=== PATIENT | female | born 1970 | race Caucasian/White ===

== ENCOUNTER 2018-05-18 11:47 | Inpatient (IN) | payer OTHER ==
[~2018-05-18] VITALS: Ht 167.6 cm; Wt 51.8 kg
[2018-05-18 11:59] VITALS: BP 102/70
[2018-05-18] MEDS ORDERED: PROTONIX 20 MG20 M1 PO (12:07)
[2018-05-18] MEDS ORDERED: NEURONTIN 300300 M1 PO (12:07)
[2018-05-18 12:54] LABS: ABSOLUTE BASOPHILS 0.1 thou/uL (0.0-0.2); ABSOLUTE LYMPHOCYTES 1.5 thou/uL (0.8-5.3); ABSOLUTE MONOCYTES 0.8 thou/uL (0.0-1.2); ABSOLUTE NEUTROPHILS 6.2 thou/uL (1.6-8.1); BASOPHILS 0.6 %; EOSINOPHILS 0.5 %; HEMATOCRIT 40.1 % (37.0-47.0); HEMOGLOBIN 13.6 gm/dL (12.0-15.0); LYMPHOCYTES 17.3 %; MCH 36.9 pg (26.0-34.0); MCV 108.5 fL (80.0-100.0); MONOCYTES 9.5 %; MPV 8.6 fl. (7.2-11.1); NUCLEATED RBCS 0 /100WBC; PLATELET COUNT* 265 thou/uL (150-400); POLYS 72.1 %; RDW-CV 16.5 % (10.5-14.5); WBC 8.6 thou/uL (4.0-11.0)
[2018-05-18 13:03] LABS: PROTIME 10.7 Seconds (9.20-11.50)
[2018-05-18 13:11] LABS: ALBUMIN 2.6 g/dL (3.4-5.0); ALKALINE PHOSPHATASE 124 U/L (46-116); ANION GAP 14 mmol/L (7-16); BUN 3 mg/dL (7-18); CALCIUM 8.8 mg/dL (8.5-10.1); CHLORIDE 98 mmol/L (98-107); CO2 25 mmol/L (21-32); CREATININE 0.6 mg/dL (0.6-1.3); GLUCOSE 68 mg/dL (70-99); LIPASE 75 U/L (73-393); POTASSIUM 3.7 mmol/L (3.5-5.1); SGOT 35 U/L (15-37); SGPT 34 U/L (30-65); SODIUM 137 mmol/L (136-145); TOTAL BILIRUBIN 0.7 mg/dL (<0.1-1.0); TOTAL PROTEIN 6.7 g/dL (6.4-8.2); TROPONIN-I LEVEL <0.06 ng/mL (<0.06)
--- NOTE | 2018-05-18 14:05 | NUR ---
PT TO MRI ON CART WITH ARTIFICIAL FOLIAGE ARRANGER. PT A&OX4 AT TIME OF DEPARTURE
[2018-05-18 14:36] LABS: URINE BILIRUBIN NEGATIVE (Negative); URINE BLOOD NEGATIVE (Negative); URINE CLARITY CLEAR; URINE COLOR YELLOW; URINE GLUCOSE-RANDOM NEGATIVE (Negative); URINE NITRITE-REFLEX NEGATIVE (Negative); URINE PROTEIN NEGATIVE (Negative); URINE UROBILINOGEN 0.2 E.U./dl (0.2-1.0)
[2018-05-18 14:37] LABS: URINE KETONES 3+ (Negative); URINE LEUKOCYTES-REFLEX 2+ (Negative)
[2018-05-18 14:42] LABS: AMP/METHAMP Negative (Negative); BARBITURATES Negative (Negative); BENZODIAZEPINES Negative (Negative); COCAINE Negative (Negative); METHADONE Negative (Negative); OPIATES Negative (Negative); PCP Negative (Negative); THC Negative (Negative)
[2018-05-18 14:43] LABS: BACTERIA-REFLEX 1-9 Few /HPF (None Seen); CASTS None Seen /LPF (None Seen); CRYSTALS None Seen /LPF (None Seen); SQUAMOUS NONE SEEN /LPF (0-3); URINE RBC 0-2 Rare /HPF (0-2); URINE WBC-REFLEX 0-5 Rare /HPF (0-5)
[2018-05-18 18:40] LABS: CSF PROTEIN 44.8 mg/dl (15-45)
[2018-05-18 18:59] LABS: CSF CLARITY CLEAR; CSF COLOR COLORLESS; VOLUME 6 ml
[2018-05-18 19:11] LABS: CSF RBC 2 /mm3; CSF WBC 0 /mm3 (0-10)
[2018-05-18 19:12] LABS: CSF EOSINOPHILS ND %; CSF LYMPHOCYTES ND % (40-80); CSF MONONUCLEARS ND % (15-45); CSF POLYS ND % (0-6)
[2018-05-18 19:15] LABS: CSF CLARITY CLEAR; CSF COLOR COLORLESS; VOLUME 6 ml
[2018-05-18 19:25] LABS: CSF EOSINOPHILS ND %; CSF LYMPHOCYTES ND % (40-80); CSF MONONUCLEARS ND % (15-45); CSF POLYS ND % (0-6); CSF RBC 0 /mm3; CSF WBC 0 /mm3 (0-10)
[2018-05-18 20:29] LABS: INFLUENZA A ANTIGEN None Detected (None Detect); INFLUENZA B ANTIGEN None Detected (None Detect)
[2018-05-18 23:20] VITALS: BP 91/41
[2018-05-19] VITALS (15 sets, daily range): BP systolic 82–101; BP diastolic 44–60
[2018-05-19 04:13] LABS: ABSOLUTE EOSINOPHILS 0.1 thou/uL (0.0-0.7); ABSOLUTE LYMPHOCYTES 1.6 thou/uL (0.8-5.3); ABSOLUTE MONOCYTES 0.4 thou/uL (0.0-1.2); ABSOLUTE NEUTROPHILS 4.8 thou/uL (1.6-8.1); BASOPHILS 0.4 %; EOSINOPHILS 1.3 %; HEMATOCRIT 33.8 % (37.0-47.0); HEMOGLOBIN 11.8 gm/dL (12.0-15.0); LYMPHOCYTES 22.9 %; MCH 37.7 pg (26.0-34.0); MCHC 34.9 g/dL (28.0-37.0); MCV 107.9 fL (80.0-100.0); MONOCYTES 6.2 %; MPV 8.8 fl. (7.2-11.1); NUCLEATED RBCS 0 /100WBC; PLATELET COUNT* 221 thou/uL (150-400); POLYS 69.2 %; RBC 3.14 mil/uL (4.20-5.00); RDW-CV 16.3 % (10.5-14.5); WBC 6.9 thou/uL (4.0-11.0)
[2018-05-19 04:36] LABS: CREATININE 0.8 mg/dL (0.6-1.3); MAGNESIUM 1.6 mg/dL (1.8-2.4); PHOSPHORUS* 3.9 mg/dL (2.5-4.9); POTASSIUM 4.1 mmol/L (3.5-5.1); TOTAL BILIRUBIN 0.4 mg/dL (<0.1-1.0); TOTAL PROTEIN 6.2 g/dL (6.4-8.2)
--- NOTE | 2018-05-19 07:00 | NUR ---
PROGRESSION TOWARDS GOALS, NO ADVERSE EFFECTS FROM IMMUNE GLOBULIN NOTED. HYDROCODONE 5/325MG PO GIVEN HELPFUL FOR PAIN MANAGEMENT PER PT REPORTS. NO DECLINE IN RESPIRATORY STATUS, REMAINS ON RA, DENIES SOA OR DIFFICULTY BREATHING, REMAINS A/OX4, TEARFUL THIS AM, VERBALIZED WORRIED R/T MEDICAL STATUS. EMOTIONAL SUPPORT PROVIDED. USING CALL LIGHT APPROPIATELY. TOLERATING FULL LIQUIDS WITHOUT S/S OF ASPIRATION NOTED. INSTRUCTED USE CALL LIGHT FOR NEEDS, WANTS, OOB, OR ANY CHANGE IN CONDITION.
--- NOTE | 2018-05-19 11:49 | NUR ---
PATIENT STOOD WITH GOOD STRENGTH TO COMMODE. GAIT BELT ON, IS UNSTEADY BUT STOOD TALL IN PLACE WELL.
--- NOTE | 2018-05-19 17:43 | EKG ---
[place] [address] ELECTROCARDIOGRAM REPORT Name: ANNA VALLADARES Room: [address] ADM IN M.R.#: [id number] Admission: 05/18/18 Attend Phys: Usha Navarrete MD Discharge: Date of : 74 Report #: [id number] THIS REPORT FOR: //name// [facility] ED Test Date: 2018-05-18 Test Time: 12:39:03 Pat Name: ANNA VALLADARES Department: Room: [facility] Gender: F Food Service Attendant: NIKOS : 1970 Requested By: Tara Medina Order Number: [id number] MD: Gavin Zazueta Measurements Intervals [place] Rate: 87 P: 79 DE: 145 QRS: -10 QRSD: 90 T: 61 QT: 438 QTc: 527 Interpretive Statements Sinus rhythm Low voltage, extremity and precordial leads Prolonged QT interval Baseline wander in lead(s) II,III,aVF No previous ECG available for comparison Electronically Signed On 05-19-2018 17:43:38 CDT by Gavin Zazueta [email or web address] <ELECTRONICALLY SIGNED> By: Gavin Zazueta MD, FAC 05/19/18 1743 1239 1239 Gavin Zazueta MD, [facility] /EPI
--- NOTE | 2018-05-19 18:20 | CON ---
[address] [address] CONSULTATION Name: ANNA VALLADARES Room: [address] IN .R.#: [id number] Admission: 05/18/18 Attend Phys: Usha Navarrete MD Discharge: Date of : 74 Report #: [id number] THIS REPORT FOR: //name// CC: SATISH MCGOVERN Physician staff Usha Navarrete HISTORY OF PRESENT ILLNESS: The patient is a 48-year-old female who approximately 2 weeks ago noticed painful paresthesias of the feet. Over a 2-week period the painful paresthesias have spread up to the upper legs. She also has paresthesias of the hands and the anterior chest wall. The patient also feels generally weak. The patient states that prior to this she had an illness where she thought perhaps she had a cold. The patient has also been seen by her primary care provider who prescribed gabapentin 300 mg t.i.d. The patient states that she can no longer walk. Her had to carry her because she found herself crawling on the floor. She has difficulty with balance. She also states she is unable to tell when she needs to urinate or defecate. She also has abdominal pain. PAST MEDICAL HISTORY: Negative. PAST SURGICAL HISTORY: Hysterectomy. MEDICATIONS: Gabapentin 300 mg t.i.d., pantoprazole 20 mg daily. ALLERGIES: None. PHYSICAL EXAMINATION: VITAL SIGNS: Temperature is 36.5, pulse rate 104, respiratory rate 16, blood pressure 91/41, bedside pulse oximetry 98% on room air. NEUROLOGIC: Cranial nerves 2-12 are grossly intact. Motor exam demonstrates symmetrical strength in all 4 extremities. The patient has decreased hand web marketing analyst bilaterally. Plantar responses are flexor. Coordination reveals intact [id number]. Sensory exam reveals a patchy sensory loss, particularly in the upper extremities. LABORATORY DATA: Hematology: White blood cell count 6.9, hemoglobin 13.6, hematocrit 40.1, MCV 108.5, platelet count 265,000. INR 1. Urinalysis: 3+ ketones, 2+ leukocyte esterase. Spinal tap: Rbc's 0, wbc's 0, glucose 42, protein 44.8. Chemistry: Sodium 139, potassium 4.1, chloride 104, carbon dioxide 27, BUN 3, creatinine 0.8, glucose 112, lactic acid 1.1, calcium 8, phosphorus 3.9, magnesium 1.6. Liver functions normal. C-reactive protein 36.9, total protein 6.2, albumin 2, prealbumin 9.6, lipase 75. Vitamin B12 is 964, folate 4.7. TSH 3.224. Drug screen negative. Serology, group A strep negative. Influenza A and B negative[place] [address] CONSULTATION Name: ANNA VALLADARES Room: [address] IN ..#: [id number] Admission: 05/18/18 Attend Phys: Usha Navarrete MD Discharge: Date of : 74 Report #: [id number] IMAGING: MRI of the head with and without contrast, normal. MRI of the cervical spine with and without contrast, unremarkable. 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 However, I have ordered an MRI of the thoracic spine with and without contrast for Sunday. At this point, the patient is on intravenous immunoglobulin 0.4 grams per kg and will receive the medication for a total of 5 days. If the intravenous immunoglobulin is ineffective, the next step may be plasmapheresis. The patient will also require physical therapy. As of Sunday, Dr. Gallegos will be following the patient. I thank you for your kind referral of this patient. <ELECTRONICALLY SIGNED> By: Brianne Segovia DO 05/19/18 1820 1116 1247Brianne Segovia DO /nt
--- NOTE | 2018-05-19 18:31 | NUR ---
PATIENT IS MOVING A LITTLE EASIER BY END OF SHIFT. RECEIVING IMMUNOGLOBULIN AT THIS TIME. NEURO TO FOLLOW UP WITH PATIENT TOMORROW. PATIENT IS WEAK BUT IS MAKING PROGRESS THROUGHOUT SHIFT. NO FEVERS. POOR APPETITE BUT INCREASING IF SHE CAN CHOOSE HER FOODS. UPDATED ON PLAN OF CARE. PATIENT RESTING IN BED, CALL LIGHT IN REACH, CARDIAC MONIOTOR IN PLACE
[2018-05-20] VITALS (14 sets, daily range): BP systolic 85–108; BP diastolic 46–67
[2018-05-20 03:55] LABS: ABSOLUTE EOSINOPHILS 0.1 thou/uL (0.0-0.7); ABSOLUTE LYMPHOCYTES 1.4 thou/uL (0.8-5.3); ABSOLUTE MONOCYTES 0.7 thou/uL (0.0-1.2); ABSOLUTE NEUTROPHILS 3.3 thou/uL (1.6-8.1); BASOPHILS 0.6 %; EOSINOPHILS 2.7 %; HEMATOCRIT 32.4 % (37.0-47.0); HEMOGLOBIN 11.2 gm/dL (12.0-15.0); LYMPHOCYTES 24.8 %; MCH 37.5 pg (26.0-34.0); MCHC 34.7 g/dL (28.0-37.0); MONOCYTES 12.6 %; MPV 8.6 fl. (7.2-11.1); NUCLEATED RBCS 0 /100WBC; PLATELET COUNT* 199 thou/uL (150-400); POLYS 59.3 %; RDW-CV 16.4 % (10.5-14.5); WBC 5.5 thou/uL (4.0-11.0)
[2018-05-20 03:59] LABS: CALCIUM 8.3 mg/dL (8.5-10.1); CREATININE 0.5 mg/dL (0.6-1.3); MAGNESIUM 1.7 mg/dL (1.8-2.4); POTASSIUM 3.7 mmol/L (3.5-5.1)
--- NOTE | 2018-05-20 04:43 | NUR ---
REPORT RECEIVED FROM OFF GOING SHIFT AND CARE ASSUMMED. MONITORS INTACT AND ALARMS SET. PT AAOX4. PT DENIES SOB AND CHEST DISCOMFORT AT THIS TIME. PT STATES HER DID NOT RINSE SHAMPOO OUT OF HER HAIR WHEN HE WASHED AND REQUESTED WE RINSE IT FOR HER. PT WAS ASSISTED TO CHAIR AT SINK TO RINSE HAIR, PTIS VERY UNSTEADY ON FEET AND KNEES ATTEMPTED TO GIVE AWAY MORE THAN ONCE. PT WHEN SLEEPING SOUNDLY PTS O2 SATS DECREASE TO LOW 80'S, O2 2L BNC APPLIED, PT AWAKENED TO APPLY AND DENIED SOB. TWICE THIS SHIFT PT CALLED OUT REPORTING THAT SHE WAS UNABLE TO MOVE AND WAS NUMB FROM NECK DOWN AND INSIDE OF HER MOUTH WAS NUMB. NEURO ASSESSMENT COMPLETED, PROPOSAL REVIEW ANALYST EQUAL BILATERALLY, WAS ABLE TO HOLD WATER CUP AND PLACE ON TABLE WHEN SHE STATED SHE HAD NO CONTROL OVER HER HANDS. PEDAL PUSHES AND PULLS WERE WITHIN NORMAL LIMITS. VSS AND NO ACUTE CHANGES DURING SHIFT WILL CONTINUE TO MONITOR
--- NOTE | 2018-05-20 10:36 | NUR ---
PATIENT CO NOT BEING ABLE TO USE HANDS GRIPPED CUP GRIPPED MY FINGERS, PUT PILLS IN MOUTH. NO RESULT FROM ENEMA.
[2018-05-20 11:09] LABS: CSF LDH 20 IU/L (())
--- NOTE | 2018-05-20 11:27 | NUR ---
ICU ROUNDING: RN IN-CHARGE OF PATIENT INFORMS THAT PATIENT C/O NUMBNESS IN UPPER EXTREMITIES, BUT STILL ABLE TO HOLD CUP TO DRINK WATER AND GIVE SELF MEDICATION. NEURO CONSULTED. NO OTHER CONCERNS. CM WILL REMAIN AVAILABLE TO ASSIST AND FOLLOW NEEDED.
--- NOTE | 2018-05-20 12:59 | CON ---
[address] [address] CONSULTATION Name: ANNA VALLADARES Room: [address] ADM IN M.R.#: [id number] Admission: 05/18/18 Attend Phys: Usha Navarrete MD Discharge: Date of : 74 Report #: [id number] THIS REPORT FOR: //name// CC: SATISH MCGOVERN Physician staff Usha Navarrete DATE OF SERVICE: 05/19/2018 REQUESTING PHYSICIAN: Dr. Navarrete. REASON FOR CONSULTATION: Possible Guillain-[place]. DISCUSSION: The patient is a 48-year-old woman who was admitted after presenting to the Emergency Department yesterday. She has had a several-week history of increasing numbness, loss of sensation and difficulty ambulating. She apparently has had some visits to a primary care provider. Has had some ED visits in [place] as well. Her symptoms were progressing. It was to the point, she notes she was unable to ambulate on her own. Her was having to take her into the restroom and help her with some of her ADLs. Also, has not been able to have a bowel movement in the last couple of weeks. She has not been eating well due to that as well. When seen in the Emergency Department here, there was concern she may have Guillain-[place] syndrome. It was initial thought about trying to transfer, but she has remained here. Neurology has not yet seen her this morning. We are asked to see her because of the possibility of Guillain-[place]. She is a remote smoker, has just minimal smoking history. She has no prior history of known pulmonary disease. She has not had any issues with shortness of breath, cough or congestion. At times, she notes her breathing has been little uncomfortable because she has abdominal distention, has been unable to have a bowel movement. She has not had any difficulty swallowing. No coughing or choking with p.o. intake. She has been complaining of having lot of not just issues with sensation and weakness, but also describes a lot of pain. She feels like she has "razors" cutting into her. This has been all extremities, not just to lower extremities. Evaluated in the Emergency Department, apparently did have a lack of perineal sensation and limited tone in her rectum. She has not had any syncopal episodes. She does have a history of some problems with anxiety. Has been under treatment for that in the past. Otherwise, there is no history of cardiopulmonary disease. What appears one of her earlier first visits, it was [place] [address] CONSULTATION Name: ANNA VALLADARES Room: [address] IN M.R.#: [id number] Admission: 05/18/18 Attend Phys: Usha Navarrete MD Discharge: Date of : 74 Report #: [id number] vomiting that she has had and was given some p.r.n. Zofran. When queried if she felt like she has had either some type of flu or gastroenteritis type syndrome, it is not clear. She is not aware of any fevers at home. Since admission, she has remained afebrile. She is on room air. Again, denies any trouble with shortness of breath or chest pain. PAST MEDICAL HISTORY: Includes hysterectomy, issues with anxiety. HOME MEDICATIONS: Have been Protonix and gabapentin. Note, she was also given some p.r.n. Zofran in the last couple of weeks as well. SOCIAL HISTORY: She is . is [employer] [facility] [employer] [facility]. She retired from working as a director of social work 6 years ago. She has always lived [facility]. She and her also lived in [place]. FAMILY HISTORY: Negative for lung disease. REVIEW OF SYSTEMS: ROS was done. Note positives as above. She does note that she feels "doped up." Some of her answers may not be reliable this morning. Does deny shortness of breath is noted. Generalized discomfort. Has been unable to ambulate without assistance. She has intermittent hot flashes related to perimenopausal state. Otherwise, negative. PHYSICAL EXAMINATION: GENERAL APPEARANCE: The patient is a woman who looks stated age. She is in bed in the Intensive Care Unit. Sitting without any acute distress. Able to speak in full sentences. HEENT: Head is normocephalic. Sclerae nonicteric. Mucous membranes are moist. NECK: Negative for adenopathy. No JVD is noted. HEART: Regular rate. Minimally tachycardic. No S3 is heard. LUNGS: Sounds are clear with good air exchange. No wheezing or crackles are heard. Excursion is equal. ABDOMEN: Just slightly distended, but soft without any definite hepatosplenomegaly. Some generalized discomfort. EXTREMITIES: She has no clubbing. Radial pulses are present. LOWER EXTREMITIES: Negative for edema. SCDs in place. SKIN: Warm and dry. NEUROLOGIC: She is alert and oriented x 3. LABORATORY AND X-RAY FINDINGS: Chest x-ray is negative for acute findings. BUN is 3 with a creatinine of 0.8, potassium is 4.1. Calcium 8.0, magnesium 1.6. Lactic acid 1.1. White blood cell count 6900, hemoglobin 11.8, hematocrit 33.8, platelets are normal. Sed rate 28. CRP 36.9. Prealbumin 9.6. Influenza screen was negative. Rapid Strep was negative. Lumbar [place] [address] CONSULTATION Name: ANNA VALLADARES Room: [address] IN .R.#: [id number] Admission: 05/18/18 Attend Phys: Usha Navarrete MD Discharge: Date of : 74 Report #: [id number] yesterday evening by the ED physician. The fluid was clear. No white cells or red cells were noted. Glucose was 42. Protein was 44.8 with additional studies been requested on the fluid. Those are pending. 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 Currently, does not appear to have any significant pulmonary compromise. RECOMMENDATIONS: 1. We will start IS. 2. Check forced vital capacity. We will plan to follow daily were increased if there is any concern. 3. For additional evaluation and treatment to Neurology. They have not yet seen her this morning. <ELECTRONICALLY SIGNED> By: Javad Salgado MD 05/20/18 1259 0905 [id number] Beasley MD /nt
--- NOTE | 2018-05-20 16:18 | NUR ---
RECEIVED CALL FROM SMITA CORDERO STATING DR HARDING WAS RECOMMENDING TRSF TO . DISCUSSED WITH DR COBIAN. CALL TO TRANSFER TEAM, SPOKE WITH RAUL. FAXED H/P, LABS, VS, CONSULTS, IMAGING REPORTS AND PROGRESS NOTES TO HER. LEFT NUMBER FOR [facility] TO CONTACT NURSING UNIT IN ICU WITH DECISION. UDPATED ICU AND HOUSE DESIGNER/URIEL TOBAR TRANSFER TEAM [phone] FAX [phone]
--- NOTE | 2018-05-20 18:47 | NUR ---
PATIENT UP ON SIDE OF BED FOR MEAL. SIMMS NOT RPLACED PT CONTINET OF URINE. PT UNABLE TO TRANSFER TO DUE TO NEEDING APPROVAL FROM [facility]. NEED FURTHER WORK IN AM FROM PERSONAL FITNESS TRAINER. PSYCH CONSULT DONE ON CHART. PATIENT CONCERNED WITH HER LOOKS AND PEOPLES PERCEPTIONS. SPENT ALOT OF TIME ENCOURAGING PATIENT.
[2018-05-21] VITALS: BP 103/65
[2018-05-21 02:00] VITALS: BP 102/60
[2018-05-21 04:00] VITALS: BP 105/69
[2018-05-21 11:11] LABS: CSF IGG INDEX 0.6 (0.0-0.7); CSF IgG 4.6 mg/dL (0.0-8.6)
[2018-05-21 13:08] LABS: CSF VDRL Non Reactive (Non Rea:<1:1)
--- NOTE | 2018-05-21 14:00 | NUR ---
PER MESSAGE FROM [facility] TRANSFER TEAM, THEY CANNOT ACCEPT PT UNLESS THEY HAVE A WRITTEN AUTHORIZATION FROM PRIOR TO STARTING THE ACCEPTANCE PROCESS SINCE THEY ARE AN [id number] FACILITY. PER DR COBIAN, TRY [facility] WHICH IS [place] WITH PT'S PRIME POLICY. CALLED [facility] TRANSFER TEAM [phone] HARDING'S PHONE NUMBER. CALLED [facility] [phone] AND SPOKE WITH SILAS Nguyen. SHE SAID THAT PT NEEDS TO USE AN [facility] IF THEY ARE AVAILABLE, BUT IF THERE IS NO OTHER PROVIDER THEN SHE CAN BE TRANSFERRED TO A HIGHER LEVEL OF CARE THE ONLY PROVIDER AVAILABLE. SHE SAID THEY CANNOT GIVE A WRITTEN AUTHORIZATION, [facility] WOULD HAVE TO SUBMIT FOR THAT ONCE PT IS IN THEIR FACILITY. CALLED [facility] TRANSFER TEAM [phone] AND SPOKE WITH RAUL. EXPLAINED THAT WILL NOT PROVIDE A WRITTEN AUTHORIZATION BUT WOULD OKAY THE TRANSFER TO A HIGHER LEVEL OF CARE. RAUL SAID THEY WILL NOT START THE ACCEPTANCE PROCESS WITHOUT A WRITTEN AUTHORIZATION FROM . DR. HARDING UPDATED, HE SAID HE WILL CALL [facility] TO SEE IF THEY CAN PROVIDE THE COMPLETE NEUROMUSCULAR EVAL. SPOKE WITH PT AND EARLIER TO LET THEM KNOW THAT WE WERE WORKING ON A TRANSFER FOR FURTHER TESTING. EARLIER
[2018-05-21 21:08] VITALS: BP 108/62
[2018-05-22] VITALS: BP 105/69
--- NOTE | 2018-05-22 06:05 | NUR ---
VITALS STABLE, PATIENT SLEPT THROUGH THE NIGHT. AFEBRILE, NO BOWEL MOVEMENT. ABLE TO USE COMMODE WITH MAX ASSIST. CALL LIGHT WITHIN REACH.
[2018-05-22 08:00] VITALS: BP 108/69
--- NOTE | 2018-05-22 09:50 | NUR ---
SPOKE WITH DR HARDING. HE TALKED WITH DR AT [facility] YESTERDAY AND THEY HAVE ACCEPTED PATIENT, THEY DID NOT HAVE ANY BEDS YESTERDAY. ICU RECEIVED CALL FROM [facility] EARLIER TODAY THAT THEY DO HAVE PT ON THE WAITING LIST BUT NO BED AVAIALABLE AT THAT TIME.
--- NOTE | 2018-05-22 10:35 | NUR ---
Nutrition: Pt admitted with ?guillian barre. Assessed for low BMI. Alb 2, prealb 8. Pt has no appetite, poor intake d/t no BM x2 weeks. She is drinking water and juice. RD ordered Ensure Clear for added nutrition. Wt: 113#. Numbness in BUE. RX: folic acid, B1. Pt is awaiting bed at [facility] - hopeful for TX today. Per ICU rounds, likely physician will order enema today as well. Will follow POC if pt now discharged for some reason.
[2018-05-22 12:55] VITALS: BP 102/72
--- NOTE | 2018-05-22 13:48 | 2DMMODE ---
[place] [address] 2 D/M-MODE ECHOCARDIOGRAM Name: ANNA VALLADARES Room: [address] IN [facility]#: [id number] Admission: 05/18/18 Attend Phys: Usha Navarrete MD Discharge: Date of : 74 Date of Service: 05/22/18 1348 Report #: [id number] THIS REPORT FOR: //name// APPROVED REPORT Study performed: 05/22/2018 10:36:26 EXAM: Comprehensive 2D, Doppler, and color-flow Echocardiogram Patient Location: In-Patient Room #: 006 Status: routine BSA: 1.58 HR: 112 bpm BP: 108/69 mmHg Rhythm: Tachycardia Other Information Study Quality: Good Indications Tachycardia 2D Dimensions IVSd: 5.62 (7-11mm) LVOT Diam: 19.49 (18-24mm) LVDd: 41.76 mm PWd: 5.62 (7-11mm) Ascending Ao: 25.62 (22-36mm) LVDs: 27.74 (25-40mm) Aortic Root: 26.75 mm Volumes Left Atrial Volume (Systole) LA ESV Index: 11.50 mL/m2 Aortic Valve AoV Peak Kalia.: 1.20 m/s AO Peak Gr.: 5.80 mmHg LVOT Max P.42 mmHg AO Mean Gr.: 3.45 mmHg LVOT Mean P.94 mmHg LVOT Max V: 0.92 m/s AO V2 VTI: 17.77 cm LVOT Mean V: 0.66 m/s ODILON (VTI): 2.79 cm2 LVOT V1 VTI: 16.65 cm TDI Medial E' Kalia.: 0.11 m/s Lateral E' Kalia.: 0.12 m/[place] [address] 2 D/M-MODE ECHOCARDIOGRAM Name: ANNA VALLADARES Room: [address] IN [facility].#: [id number] Admission: 05/18/18 Attend Phys: Usha Navarrete MD Discharge: Date of : 74 Date of Service: 05/22/18 1348 Report #: [id number] Pulmonary Valve PV Peak Kalia.: 1.00 m/s PV Peak Gr.: 3.97 mmHg Tricuspid Valve RAP Estimate: 5.00 mmHg TR Peak Gr.: 21.01 mmHg RVSP: 26.00 mmHg PA Pressure: 26.00 mmHg Left Ventricle The left ventricle is normal size. There is normal LV segmental wall motion. There is normal left ventricular wall thickness. Left ventricular systolic function is normal. The left ventricular ejection fraction is within the normal range. LVEF is 65-70%. Grade I - abnormal relaxation pattern. Right Ventricle The right ventricle is normal size. The right ventricular systolic function is normal. Atria The left atrium size is normal. The right atrium size is normal. Aortic Valve The aortic valve is normal in structure. No aortic regurgitation is present. There is no aortic valvular stenosis. Mitral Valve The mitral valve is normal in structure. There is no mitral valve regurgitation noted. No evidence of mitral valve stenosis. Tricuspid Valve The tricuspid valve is normal in structure. Trace to mild tricuspid regurgitation. No pulmonary hypertension. Pulmonic Valve The pulmonary valve is normal in structure. There is no pulmonic valvular regurgitation. Great Vessels The aortic root is normal in size. IVC is normal in size and collapses >50% with inspiration. Pericardium There is no pericard[place] [address] 2 D/M-MODE ECHOCARDIOGRAM Name: ANNA VALLADARES Room: [address] IN [place]#: [id number] Admission: 05/18/18 Attend Phys: Usha Navarrete MD Discharge: Date of : 74 Date of Service: 05/22/18 1348 Report #: [id number] <Conclusion> Left ventricular systolic function is normal. The left ventricular ejection fraction is within the normal range. <ELECTRONICALLY SIGNED> By: Gavin Zazueta MD, [facility] 05/22/18 1348 1348 1348 Gavin Zazueta MD, FACC /INF
--- NOTE | 2018-05-22 15:41 | EKG ---
[place] [address] ELECTROCARDIOGRAM REPORT Name: ANNA VALLADARES Room: [address] ADM IN M.R.#: [id number] Admission: 05/18/18 Attend Phys: Usha Navarrete MD Discharge: Date of : 74 Report #: [id number] THIS REPORT FOR: //name// [facility] Test Date: 2018-05-22 Test Time: 10:33:10 Pat Name: ANNA VALLADARES Department: Room: [address] Gender: F Ecommerce Analyst: : 1970 Requested By: Daniel John Order Number: [id number] MD: Gavin Zazueta Measurements Intervals [place] Rate: 113 P: 55 DC: 128 QRS: -10 QRSD: 101 T: 9 QT: 297 QTc: 408 Interpretive Statements Sinus tachycardia Low voltage, extremity leads Nonspecific T abnormalities, anterior leads Compared to ECG 05/18/2018 12:39:03 T-wave abnormality now present Sinus rhythm no longer present Prolonged QT interval no longer present Electronically Signed On 05-22-2018 15:41:19 CDT by Gavin Zazueta [email or web address] <ELECTRONICALLY SIGNED> By: Gavin Zazueta MD, FAC 05/22/18 1541 1033 1033 Gavin Zazueta MD, [facility] /EPI
[2018-05-22 17:05] VITALS: BP 97/64
--- NOTE | 2018-05-22 19:26 | NUR ---
PATIENT ALERT AND ORIENTED X4. PT WAS PLANNED FOR TRANSFER TO [facility] BUT THEY CALLED SAYING THAT THEY DON'T HAVE ANY BEDS AVAILABLE FOR TODAY. SHE VOMITED ONE EPISODE IN THE MORNING AND DID NOT HAVE ANY BM TODAY. GAVE HER DULCOLAX AND ENEMA NC WITH SMALL BOWEL MOVEMENT. SHE HAS BEEN REFUSING TO EAT, DIET ENCOURAGED.
[2018-05-23 03:51] LABS: HEMATOCRIT 31.9 % (37.0-47.0); HEMOGLOBIN 11.5 gm/dL (12.0-15.0); MCH 38.5 pg (26.0-34.0); MCHC 35.8 g/dL (28.0-37.0); MCV 107.5 fL (80.0-100.0); MPV 8.1 fl. (7.2-11.1); RBC 2.97 mil/uL (4.20-5.00); WBC 8.6 thou/uL (4.0-11.0)
[2018-05-23 04:10] LABS: ALBUMIN 1.8 g/dL (3.4-5.0); CALCIUM 8.2 mg/dL (8.5-10.1); CREATININE 0.6 mg/dL (0.6-1.3); POTASSIUM 3.6 mmol/L (3.5-5.1); TOTAL BILIRUBIN 1.2 mg/dL (<0.1-1.0); TOTAL PROTEIN 7.2 g/dL (6.4-8.2)
--- NOTE | 2018-05-23 06:02 | NUR ---
VITALS STABLE, PATIENT SLEEPING THROUGH MOST OF THE NIGHT. ENEMA AT 1900, NO BM, PATIENT REFUSES STOOL SOFTNER. CALL LIGHT WITHIN REACH, POSITIONS SELF IN BED.
[2018-05-23 08:00] VITALS: BP 99/78
[2018-05-23 12:00] VITALS: BP 96/68
--- NOTE | 2018-05-23 14:44 | NUR ---
PUNCH PRESS OPERATOR HELPER ASSISTING WITH DISCHARGE PLANNING AND [id number] TRANSFER OPTIONS. D/C JEWELLERY DESIGNER SPOKE TO MIRNA WITH [facility] TRANSFER TEAM TO DISCUSS #1 ABILITY TO ACCEPT [facility] [employer]URANCE. #2 NEUROMUSCULAR SPECIALIST ON STAFF. AND #3 ABILITY TO PERFORM INPATIENT E.M.G.'S. MIRNA INFORMS THAT '[facility] HAS NEUROMUSCULAR SPECIALIST AT [facility], AND [facility]', AND 'ARE ABLE TO DO E.M.G.'S', BUT 'CAN NOT SAY FOR CERTAIN IF THEY ACCEPT [facility] INSURANCE TOPOGRAPHICAL SURVEYOR ASSESS THE INSURANCE PORTION OF THE TRANSFER'. IF ONE FACILITY IS UNABLE TO ACCEPT THE PATIENT'S INSURANCE THEY WILL MOVE ON TO ANOTHER FACILITY TO GET ONE THAT ACCEPTS IT. [facility]'S TRANSFER TEAM INFORMS THAT THEY 'HAVE A NERUOLOGIST THAT IS WILL TO LOOK AT THE PATIENT', BUT THEY 'GENERALLY TRANSFER PAIENT'S IN NEED OF A NEUROMUSCULAR SPECIALIST TO ', THEY ALSO INFORM THAT THE 'FACILTIY DOES NOT CURRENTLY HAVE BED AVAILABILITY'. D/C JEWELLERY DESIGNER AWAITING FURTHER INSTRUCTION, TO DISCHARGE PLANNING. CM WILL REMAIN AVIALABLE TO ASSIST AND FOLLOW NEEDED.
--- NOTE | 2018-05-23 15:13 | NUR ---
SPOKE WITH [facility] TRANSFER TEAM THIS MORNING, THEY HAVE NO BEDS AVAIALABLE AT THIS TIME. FAXED COPY OFINSURANCE INFORMATION TO TRANSFER TEAM. DISCUSSED WITH DR. COBIAN, WILL CHECK INTO ANY OTHER HOSPITAL OPTIONS. [facility] IS OUT OF NETWORK AND WILL NOT ACCEPT PT. [facility] DOES NOT HAVE A NEUROMUSCULAR SPECIALIST. [facility] TRANSFER TEAM SAID THEY MIGHT HAVE DRS AVAILABLE. DISCUSSED WTIH DR. HARDING, HE SAID HE IS FAMILIAR WITH WHAT SERVICES [facility] HAVE AND HE DOESN'T FEEL THEY CAN DO ANYTHING DIFFERENT THAN WHAT HE IS DOING. HE SAID TO CONTINUE TO TRY AND GET HER TRANSFERRED TO [facility].
[2018-05-23 16:00] VITALS: BP 97/49
[2018-05-23 19:20] VITALS: BP 102/75
[2018-05-24 00:32] VITALS: BP 110/69
--- NOTE | 2018-05-24 03:18 | NUR ---
ASSUMED CARE OF PT AT 1900. PT IS ALERT AND ORIENTED. VSS. PERRLA. NO COMPLAINTS OF PAIN. PT REPORTS INABILITY TO USE LEGS AND ARMS. ALSO NUMBNESS IN ARMS. PT IS UP WITH 1 ASSIST. PT IS SINUS RYTHM AND SINUS TACHYCARDIA ON THE TELEMETRY. PT IS RESTING COMFORTABLY IN BED. RESPIRATIONS ARE EVEN AND NONLABORED. WILL CONTINUE TO MONITOR PT.
[2018-05-24 08:00] VITALS: BP 103/60
--- NOTE | 2018-05-24 11:50 | NUR ---
VSS, ASSUMED CARE IN THE AM, ASSESSMENT PERFORMED AND CHARTED, FALL PRECAUTIONS IN PLACE AND CALL LIGHT IN REACH, PT IS A&O4 AND UP WITH ONE TO BSC, SHE STAGGERS HER FEET WHEN TRANSFURING, BUT HOLDS HER WEIGHT, PT IS TRACING ST ON THE MONITOR, SHE IS ON RA, AND HER GOAL IS TO WORK WITH PT/OT, AND GET TRANSFURED TO [facility], ON [address]. WILL FOLLOW WITH PLAN OF CARE.
[2018-05-24 12:00] VITALS: BP 71/53
[2018-05-24 16:00] VITALS: BP 84/67
--- NOTE | 2018-05-24 17:58 | NUR ---
VSS, CALLED REPORT TO HARRIET AT [facility] ON [address], PROVITED REPORT AND ETA ON PT ARRIVAL, PT IS BEING TRANSFURED VIA [facility], PT DENIES ANY QUESTIONS OR CONCERNS AT TIME OF D/C PROVITED D/C PAPERS, HOURLY ROUNDS COMPLETED.
== END 2018-05-24 17:55 | disposition short-term general hospital (02) | DRG 94 ==
LOC: M.ERS 11:47 → M.TBA-ER 19:40 → M.ICU 19:40 → M.2W 05-23 14:49
PROVIDERS: Family Medicine; Physician Assistant; Psychiatry & Neurology Neuromuscular Medicine; ADMIT Family Medicine
PROC: 009U3ZX Drainage of Spinal Canal, Percutaneous Approach, Diagnostic (ICD-10-PCS; principal; 2018-05-18)
DX: G61.0 Guillain-Barre syndrome (principal); E43 Unspecified severe protein-calorie malnutrition; Z68.1 Body mass index [BMI] 19.9 or less, adult; R27.0 Ataxia, unspecified; G62.9 Polyneuropathy, unspecified; K59.00 Constipation, unspecified; E83.42 Hypomagnesemia; E53.8 Deficiency of other specified B group vitamins; F41.9 Anxiety disorder, unspecified; R00.0 Tachycardia, unspecified; F32.9 Major depressive disorder, single episode, unspecified; Z90.710 Acquired absence of both cervix and uterus; Z87.891 Personal history of nicotine dependence; Z79.899 Other long term (current) drug therapy